=== PATIENT | female | born 1930 | race Hispanic/Latino ===

== ENCOUNTER 2016-11-06 15:29 | Emergency (ER) | payer OTHER, MEDICARE ==
[~2016-11-06] VITALS: Ht 154.9 cm; Wt 68.1 kg
[~2016-11-06 15:29] MED LIST: AMLODIPINE BESYL5 MG PO; ASPIR 8181 M1 PO; ASPIRIN81 M1 PO; ATENOLOL50 MG PO; ATIVAN1 MG PO; AYR SALINE NA14.1 GM BOTH NARES; B-12500 MC1 SL; BENGAY ULTRA S113 GM TP; BETA CAROT10000 UNIT PO; BETA CAROT25000 UNIT PO; BISAC-EVAC10 MG PR; DAILY MULTIPLE1 EACH PO; HYDROCHLOROTHIAZIDE; Hydrodiuril,Oretic,E PO; LEXAPRO5 MG PO; LIDODERM 5% P1 PATCH TD; LO-DOSE ASPIRIN81 M1 PO; MAGNESIUM OXID200 MG PO; NORVASC10 MG PO; PRAVASTATIN SOD40 MG PO; PRED FORTE100 DROP/5 LEFT EYE; PROPRANOLOL; Pred Forte 1%,Omnipr RIGHT EYE; SENNA-TIME S T1 EACH PO; TRIAMTERENE-HC1 EAC1 PO; TYLENOL EXTRA500 MG PO; TYLENOL REGULA325 MG PO; Tenormin PO; Tylenol Regular Stre PO; VITAMIN B-12500 MC5 SL; VITAMIN D1000 INTUN PO; VITAMIN D31000 UNIT PO; VITAMIN D400 UNI1 PO; XARELTO10 MG PO; [UNRECOGNIZED DRUG - REMARK]; lorazepam; pravachol PO
[2016-11-06 17:10] LABS: EOSINOPHIL COUNT 0.2 K/uL (0-0.3); HEMATOCRIT 32.4 % (36.0-46.0); IMMATURE GRANULOCYTE (%) 0.4 % (0.0-0.7); INSTRUMENT ABS NEUTROPHIL CT 3.2 K/uL; LYMPHOCYTE COUNT 1.3 K/uL (1.0-2.8); MCH 29.2 PG (29.0-34.0); MCHC 32.7 G/DL (30.0-36.0); MCV 89.3 FL (83-99); MEAN PLAT.VOLUME 10.6 uM^3 (9.5-12.4); MONOCYTE (%) 7.2 % (3-12); MONOCYTE COUNT 0.4 K/uL (0-0.8); NEUTROPHIL (%) 63.5 % (45-76); NEUTROPHIL COUNT 3.2 K/uL (1.8-6.4); PLATELET COUNT 187 K/uL (156-360); RBC DIS.WIDTH-CV 12.7 % (11.8-14.6); RBC DIS.WIDTH-SD 41.5 % (39-53); RED BLOOD COUNT 3.63 M/uL (3.80-5.20)
[2016-11-06 17:19] LABS: CHLORIDE 108 mEq/L (99-109); POTASSIUM 3.8 mEq/L (3.7-5.4); SODIUM 141 mEq/L (136-147)
[2016-11-06 17:21] LABS: GLUCOSE 110 mg/dL (70-99)
[2016-11-06 17:22] LABS: ANION GAP 10 MEQ/L (2-14)
[2016-11-06 17:23] LABS: TOTAL BILIRUBIN 0.4 mg/dL (0.0-1.0)
[2016-11-06 17:24] LABS: ALKALINE PHOSPHATASE 54 IU/L (3-129)
[2016-11-06 17:25] LABS: GFR ESTIMATE (CALCULATED) 33 mL/min/
[2016-11-06 17:26] LABS: UREA NITROGEN (BUN) 38 mg/dL (9-23)
[2016-11-06 17:33] LABS: TROP-I INTERPRETATION NEGATIVE; TROPONIN-I < 0.01 ng/mL (0.0-0.30)
[2016-11-06 17:50] LABS: LIPASE 62 U/L (1.0-51.0)
[2016-11-06 18:34] LABS: ADD MIUA? NO; BILIRUBIN NEGATIVE; BLOOD NEGATIVE; COLOR YELLOW ((YELLOW)); GLUCOSE (STRIP) NEGATIVE; KETONES NEGATIVE; LEUKOCYTES NEGATIVE; NITRITE NEGATIVE; PROTEIN (STRIP) NEGATIVE; SPECIFIC GRAVITY 1.012 (1.000-1.030); UCUL ADDED? NO; UROBILINOGEN 0.2 MG/DL (0.2-1.0)
[2016-11-06] MEDS ORDERED: MAGNESIUM OXID200 MG PO (19:36)
[2016-11-06 19:37] VITALS: BP 153/54
[2016-11-06] MEDS ORDERED: PROMETHAZINE HC25 M1 PO (19:39)
[2016-11-06] MEDS ORDERED: OMEPRAZOLE40 M1 PO (19:39)
[2016-11-06] MEDS ORDERED: PROBIOTIC1 EAC1 PO (19:40)
== END 2016-11-06 19:38 | disposition home or self-care (01) ==
LOC: EME 15:29
PROVIDERS: Emergency Medicine
DX: E86.0 Dehydration (principal); I10 Essential (primary) hypertension
CPT/HCPCS: 71020; 80053; 81003; 83690; 84484; 85025; 93005; 99281; 99285; J7030